=== PATIENT | male | born 1985 | race Caucasian/White ===

== ENCOUNTER 2019-07-11 09:50 | Inpatient (IN) | payer MEDICAID ==
[2019-07-11] VITALS (362 sets, daily range): BP systolic 130–138; BP diastolic 93–101; PULSE 92–105; TEMP 97.2–98.8; O2SAT 80–100
[~2019-07-11] VITALS: Ht 175.3 cm; Wt 63.0 kg
[~2019-07-11 09:50] MED LIST: ABILIFY; ABILIFY DISCMEL10 M1; ATIVAN1 MG PO; BACTRIM DS 8001 TAB PO; BENTYL10 MG PO; CELEXA; CEPHALEXIN500 M1 PO; CLINDAMYCIN HC150 MG PO; GENTAMICIN EYE D5 ML OS; GEODON; LORAZEPAM2 MG PO; LORTAB 10/500 51 TAB PO; LORTAB 5/500 501 TAB PO; NO HOME MEDICATIONS; PAMELOR 25MG25 MG PO; PEPCID 20MG TAB20 MG PO; PHENERGAN 25 TA25 MG PO; PRILOSEC 20MG20 MG PO; PRISTIQ100 MG PO; PRISTIQ50 MG; RANITIDINE HYD150 MG PO; SKELAXIN800 MG PO; STOMACH ULCER MED; TRAMADOL; ZANTAC; ZOFRAN4 M1 PO; ZOLOFT; [UNRECOGNIZED DRUG - OTHER]; [UNRECOGNIZED DRUG - REMARK]
[2019-07-11 10:22] LABS: BASO % 0.3 % (0.0-2.0); GRAN # 8.9 (1.4-6.5); GRAN % 79.1 % (42.2-75.2); HEMOGLOBIN 13.3 g/dl (13.5-18.0); LYMPH # 1.2 (1.2-3.4); LYMPH % 11.1 % (20.0-51.0); MEAN CELL VOLUME 93 fl (80.0-100.0); MEAN CORPUSCULAR HEMOGLOBIN 29 pg (27.0-31.0); MEAN CORPUSCULAR HGB CONC 32 g/dl (33.0-37.0); MEAN PLATELET VOLUME 9.7 fl (7.4-10.4); MONO % 8.9 % (1.7-9.3); PLATELET COUNT 225 K/mm3 (130-400); RED BLOOD COUNT 4.52 M/mm3 (4.20-5.60)
[2019-07-11 10:34] LABS: COLLECTION METHOD CATHETER
[2019-07-11 10:44] LABS: MUCOUS Present /lpf; PH 5 (5-8); SQUAMOUS EPITHELIAL 0-2 /hpf; URINE APPEARANCE Hazy; URINE BACTERIA Rare /hpf; URINE BILIRUBIN Negative (NEGATIVE); URINE BLOOD 3+ (NEGATIVE); URINE COLOR Yellow; URINE GLUCOSE 2+ (NEGATIVE); URINE KETONE Negative (NEGATIVE); URINE LEUKOCYTE ESTERASE Negative (NEGATIVE); URINE NITRATE Negative (NEGATIVE); URINE PROTEIN(semi-quant) 1+ (NEGATIVE); URINE RBC 0-2 /hpf
[2019-07-11 10:51] LABS: TRICYCLIC ANTIDEPRESS URINE NEGATIVE
[2019-07-11 10:53] LABS: ALANINE AMINOTRANSFERASE 177 U/L (4-49); ALBUMIN 4.3 gm/dL (3.5-5.0); ALKALINE PHOSPHATASE 93 U/L (50-136); ANION GAP 13 mmol/L (7-16); AST,SGOT 185 U/L (15-37); BILIRUBIN,TOTAL 0.3 mg/dL (0.0-1.0); BLOOD UREA NITROGEN 23 mg/dL (9-20); CALCIUM 8.1 mg/dL (8.4-10.2); CARBON DIOXIDE 26 mmol/L (22-30); CHLORIDE 99 mmol/L (98-107); CREATININE, serum 2.39 (0.66-1.25); GLUCOSE 92 mg/dL (74-106); SODIUM 138 mmol/L (137-145); TOTAL PROTEIN 6.9 gm/dL (6.4-8.2)
[2019-07-11 10:55] LABS: ACETAMINOPHEN < 10 ug/mL (10-30); ALCOHOL(ethanol),MEDICAL < 10 mg/dL; POTASSIUM 6.3 mmol/L (3.4-5.0); SALICYLATE < 1.0 mg/dL
[2019-07-11 11:27] LABS: ARTERIAL BLD GAS O2 SATURATION 93.5 % (92-100); ARTERIAL BLD GAS TCO2 CT 21.4; ARTERIAL BLOOD GAS HCO3 20.1 meq/L (22-26); ARTERIAL BLOOD GAS PCO2 41.8 mmHg (35-45); ARTERIAL BLOOD GAS PO2 68.2 mmHg (80-100)
[2019-07-11 12:35] LABS: MAGNESIUM 2.3 mg/dL (1.6-2.3)
[2019-07-11 12:45] LABS: POTASSIUM 6.2 mmol/L (3.4-5.0)
[2019-07-11 14:15] LABS: ARTERIAL BLD GAS O2 SATURATION 94.9 % (92-100); ARTERIAL BLD GAS TCO2 CT 20.6; ARTERIAL BLOOD GAS BASE EXCESS -6.6 (-2-2); ARTERIAL BLOOD GAS HCO3 19.4 meq/L (22-26); ARTERIAL BLOOD GAS PCO2 40.3 mmHg (35-45); ARTERIAL BLOOD GAS PO2 75.2 mmHg (80-100)
[2019-07-11 14:18] LABS: CALCIUM 10.2 mg/dL (8.4-10.2); CREATININE, serum 1.46 (0.66-1.25); POTASSIUM 4.4 mmol/L (3.4-5.0)
--- NOTE | 2019-07-11 21:10 | NUR ---
Assessment complete; patient drowsy but opened eyes to speech. Able to follow simple commands but did not respond verbally to this nurse. VS stable. Will continue to monitor.
[2019-07-12] VITALS (930 sets, daily range): BP systolic 120–145; BP diastolic 72–92; PULSE 77–94; TEMP 97.3–98.8; O2SAT 90–100
--- NOTE | 2019-07-12 01:51 | NUR ---
Patient continues to be drowsy and sleeping throughout shift. Will awaken and follow commands before falling asleep again. ETCO2 and respiration within normal limits.
--- NOTE | 2019-07-12 04:50 | NUR ---
Patient awoke and called out to this nurse. Patient asked "how come nobody told my why I'm here?". This nurse explained that patient was not responsive upon arrival and has remained very drowsy until this time. Asked about when he could leave; explained that this is determined by the physician, who will be here sometime during the day. Patient seemed satisfied with this response and returned to sleep.
--- NOTE | 2019-07-12 07:05 | NUR ---
Bedside report given to CORNELIUS Coyle. Patient care transfered.
[2019-07-12 07:10] LABS: BASO % 0.2 % (0.0-2.0); EOS % 0.3 % (0-4.0); GRAN # 7.9 (1.4-6.5); GRAN % 68.6 % (42.2-75.2); HEMOGLOBIN 12.1 g/dl (13.5-18.0); LYMPH # 2.7 (1.2-3.4); LYMPH % 23.1 % (20.0-51.0); MEAN CORPUSCULAR HEMOGLOBIN 30 pg (27.0-31.0); MEAN CORPUSCULAR HGB CONC 34 g/dl (33.0-37.0); MEAN PLATELET VOLUME 10.2 fl (7.4-10.4); MONO # 0.9 (0.1-0.6); MONO % 7.5 % (1.7-9.3); PLATELET COUNT 179 K/mm3 (130-400); RED BLOOD COUNT 4.06 M/mm3 (4.20-5.60)
[2019-07-12 07:11] LABS: HEMATOCRIT 35.8 % (42.0-52.0); MEAN CELL VOLUME 88 fl (80.0-100.0)
[2019-07-12 07:18] LABS: INR 1.3 (0.8-3.0); PROTHROMBIN TIME 15.8 SECONDS (9.7-12.8)
[2019-07-12 07:27] LABS: ALBUMIN 2.9 gm/dL (3.5-5.0); BILIRUBIN,TOTAL 0.4 mg/dL (0.0-1.0); CALCIUM 7.6 mg/dL (8.4-10.2); CREATININE, serum 0.71 (0.66-1.25); MAGNESIUM 2.2 mg/dL (1.6-2.3); POTASSIUM 3.6 mmol/L (3.4-5.0); TOTAL PROTEIN 5.3 gm/dL (6.4-8.2)
--- NOTE | 2019-07-12 08:41 | NUR ---
Significantly more alert this am. Required orientation to place and time, but is able to verbalize that he is in the hospital in [place] in the ICU. Follows commands, no agitation noted. Quickly returns to sleep between conversations. Plan of care reviewed.
--- NOTE | 2019-07-12 10:58 | NUR ---
Initial visit attempt; Patient sleeping, Sports Activities Foul Judge spoke with family member, letting her know of the availability of spiritual care for the patient and family. She thanked Sports Activities Foul Judge for stopping.
--- NOTE | 2019-07-12 13:14 | NUR ---
NUTRITIONAL ASSISTANT student met with the patient and the patient's sister, Cassy to complete initial intake. Cassy is from [place]. The patient was difficult to rouse, Cassy answered as best she could. The patient is staying at the [facility] with his and kids. The patient does not use DME and is independent with ADLs. Cassy does not know if the patient has a PCP or which pharmacy is used. Cassy states she would like to take the patient back to [place], if he is agreeable to go to an inpatient drug and alcohol treatment facility. support services rep will continue to follow to ensure a safe discharge.
[2019-07-13] VITALS (361 sets, daily range): BP systolic 128–140; BP diastolic 86–95; PULSE 63–76; TEMP 98–98.6; O2SAT 91–100
[2019-07-13 06:44] LABS: BASO % 0.4 % (0.0-2.0); EOS # 0.1 (0.0-0.7); EOS % 1.1 % (0-4.0); GRAN # 4.1 (1.4-6.5); HEMOGLOBIN 11.5 g/dl (13.5-18.0); LYMPH # 2.3 (1.2-3.4); LYMPH % 31.8 % (20.0-51.0); MEAN CELL VOLUME 91 fl (80.0-100.0); MEAN CORPUSCULAR HEMOGLOBIN 30 pg (27.0-31.0); MEAN CORPUSCULAR HGB CONC 33 g/dl (33.0-37.0); MEAN PLATELET VOLUME 10.7 fl (7.4-10.4); MONO # 0.8 (0.1-0.6); MONO % 10.4 % (1.7-9.3); PLATELET COUNT 164 K/mm3 (130-400); RED BLOOD COUNT 3.81 M/mm3 (4.20-5.60); REDCELL DISTRIBUTION WIDTH-CV 12.1 % (11.5-14.5)
[2019-07-13 06:55] LABS: HEMATOCRIT 34.6 % (42.0-52.0)
[2019-07-13 06:59] LABS: CALCIUM 7.5 mg/dL (8.4-10.2); CREATININE, serum 0.54 (0.66-1.25); MAGNESIUM 2.2 mg/dL (1.6-2.3); POTASSIUM 3.8 mmol/L (3.4-5.0)
--- NOTE | 2019-07-13 12:10 | NUR ---
Initial visit; Patient thanked Agricultural Economist for looking in on him and offering spiritual care.
--- NOTE | 2019-07-13 16:39 | NUR ---
Patient to room from ICU via wheelchair. is with the patient. Patient is alert and oriented x4. Denies pain at this time. Two abrasions noted to middle of forehead and bridge of nose that are scabbed over, patient says that these are old injuries. Assessment completed. Patient oriented to the room and use of call light. Patient and deny further needs at this time.
--- NOTE | 2019-07-13 18:23 | NUR ---
Lying in bed in supine position with eyes closed. Respirations even and unlabored. No signs or symptoms of discomfort noted.
[2019-07-14] VITALS: BP 126/90; PULSE 69; TEMP 98.1
--- NOTE | 2019-07-14 02:48 | NUR ---
Patient has been resting in bed watching TV this shift. Complaints of back pain from bed, denies needs at this time. Patient has tolerated general diet without nausea. Patient is able to ambulate in room independently. Patient has two IV sites one in the left upper arm, capped and one in the left AC with fluids running. Patient has small abrasion to nose and forhead, reported that occurred before hospital stay.
[2019-07-14 04:37] VITALS: BP 141/96; PULSE 62; TEMP 97.7
[2019-07-14 07:19] VITALS: BP 147/97; PULSE 61; TEMP 98
--- NOTE | 2019-07-14 08:00 | NUR ---
PATIENT RESTING IN BED THIS MORNING. PATIENT DENIES ANY NEEDS AT THIS TIME.
[2019-07-14 08:23] LABS: CALCIUM 7.9 mg/dL (8.4-10.2); CREATININE, serum 0.64 (0.66-1.25); MAGNESIUM 1.8 mg/dL (1.6-2.3)
[2019-07-14 11:36] VITALS: BP 146/90; PULSE 65; TEMP 98.7
--- NOTE | 2019-07-14 12:15 | NUR ---
IV FLUID RATE CHANGED TO 100 ML/HR. PATIENT SITTING UP IN THE CHAIR. PATIENT DENIES PAIN OR ANY NEEDS AT THIS TIME.
--- NOTE | 2019-07-14 14:34 | NUR ---
MANDY attended clinical rounds. The patient is to discharge today, 07/13. MANDY then met with the patient to follow up on discharge plan and to discuss treatment for drug use. The patient reports that he has been residing at the [facility] with his (Janna) and their three children. He states that Janna is with their fourth child. He states that he plans to return back to [facility] upon discharge. The patient was interested in outpatient drug treatment at [facility]. MANDY contacted Carley at [facility] and secured the patient an appointment on 07/24 at 0900 with Kamala Yancey. MANDY informed the patient and manager intensive care unit of appointment. The patient reports that he will be able to afford the medications that he is prescribed. MANDY also discussed primary care. The patient states that he had a PCP in [place], but could not recall there name. He states that he would be interested in getting set up at a clinic in [place]. The patient states that his goes to [facility] and that he would like to get set up there. The patient was secured an appointment at [facility] on 07/24 at 1100. The patient is to discharge today, 07/13, back to [facility] with his family. MANDY made a CPS report, due to concerns. CPS intake ID#[id number].
--- NOTE | 2019-07-14 15:01 | NUR ---
DISCHARGE INSTRUCTIONS REVIEWED WITH PATIENT. LEFT AC AND LEFT FOREARM INT'S DISCONTINUED PER PENDING DISCHARGE. PATIENT TOLERATED WELL.
--- NOTE | 2019-07-14 15:28 | NUR ---
PATIENT AMBULATED WITH SURGICAL STAFF TO PERSONAL VEHICLE. PATIENT DISCHARGED.
== END 2019-07-14 15:28 | disposition home or self-care (01) | DRG 917 ==
LOC: COL.ER 09:50 → ICU 11:45 → SURG 11:45
PROVIDERS: Emergency Medicine; Internal Medicine; Internal Medicine Pulmonary Disease; Nurse Practitioner Family; ADMIT Student in an Organized Health Care Education/Training Program
DX: T40.5X1A Poisoning by cocaine, accidental (unintentional), initial encounter (principal); G92 Toxic encephalopathy; M62.82 Rhabdomyolysis; N17.9 Acute kidney failure, unspecified; T40.1X1A Poisoning by heroin, accidental (unintentional), initial encounter; F19.10 Other psychoactive substance abuse, uncomplicated; F17.210 Nicotine dependence, cigarettes, uncomplicated; E87.5 Hyperkalemia; R11.2 Nausea with vomiting, unspecified
CPT/HCPCS: 99223-AI; 99232-AI; 99233-AI; 99239; J0610; J1644; J1815; J2310; J2405; J2543; J7030; J7120

== ENCOUNTER 2019-08-23 19:42 | Emergency (ER) | payer MEDICAID ==
[~2019-08-23] VITALS: Ht 175.3 cm; Wt 75.0 kg
[2019-08-23 19:47] VITALS: TEMP 98.6
[2019-08-23 21:26] LABS: BASO # 0.1 (0.0-0.2); BASO % 0.5 % (0.0-2.0); EOS # 0.3 (0.0-0.7); EOS % 2.6 % (0-4.0); GRAN # 5.3 (1.4-6.5); GRAN % 53.7 % (42.2-75.2); HEMATOCRIT 40.3 % (42.0-52.0); HEMOGLOBIN 13.9 g/dl (13.5-18.0); LYMPH # 3.4 (1.2-3.4); LYMPH % 34.6 % (20.0-51.0); MEAN CELL VOLUME 87 fl (80.0-100.0); MEAN CORPUSCULAR HEMOGLOBIN 30 pg (27.0-31.0); MEAN CORPUSCULAR HGB CONC 35 g/dl (33.0-37.0); MEAN PLATELET VOLUME 9.4 fl (7.4-10.4); MONO # 0.8 (0.1-0.6); MONO % 8.3 % (1.7-9.3); PLATELET COUNT 286 K/mm3 (130-400); RED BLOOD COUNT 4.62 M/mm3 (4.20-5.60)
[2019-08-23 21:30] LABS: ALANINE AMINOTRANSFERASE 15 U/L (4-49); ALBUMIN 4.4 gm/dL (3.5-5.0); ALKALINE PHOSPHATASE 93 U/L (50-136); ANION GAP 9 mmol/L (7-16); AST,SGOT 19 U/L (15-37); BILIRUBIN,TOTAL 0.3 mg/dL (0.0-1.0); BLOOD UREA NITROGEN 10 mg/dL (9-20); CALCIUM 9.3 mg/dL (8.4-10.2); CARBON DIOXIDE 26 mmol/L (22-30); CHLORIDE 106 mmol/L (98-107); CREATININE, serum 0.92 (0.66-1.25); GLUCOSE 95 mg/dL (74-106); POTASSIUM 3.7 mmol/L (3.4-5.0); SODIUM 141 mmol/L (137-145); TOTAL PROTEIN 7.4 gm/dL (6.4-8.2)
[2019-08-23 21:42] LABS: TROPONIN-I < 0.012 ng/mL (0.000-0.035)
[2019-08-23] MEDS ORDERED: ATARAX 25MG25 MG/TAB PO (22:55)
[2019-08-23] MEDS ORDERED: PRILOTC PO (22:55)
[2019-08-23 22:58] VITALS: BP 122/82; PULSE 82
== END 2019-08-23 23:05 | disposition home or self-care (01) ==
LOC: COL.ER 19:42
PROVIDERS: Emergency Medicine
DX: F41.0 Panic disorder [episodic paroxysmal anxiety] (principal); R07.89 Other chest pain; R06.00 Dyspnea, unspecified; R13.10 Dysphagia, unspecified; F17.210 Nicotine dependence, cigarettes, uncomplicated

== ENCOUNTER 2023-07-21 09:19 | Emergency (ER) | payer SELFPAY ==
[~2023-07-21] VITALS: Ht 175.3 cm; Wt 75.0 kg
[~2023-07-21 09:19] MED LIST changes: +ATARAX 25MG25 MG/TAB PO; +PRILOTC PO
[2023-07-21] MEDS ORDERED: Acetaminophen 500 MG TAB PO ONE (10:00)
[2023-07-21] MEDS ORDERED: Ibuprofen 600 MG TAB PO ONE (10:00)
[2023-07-21 12:25] VITALS: BP 131/90; PULSE 70; TEMP 98
== END 2023-07-21 12:25 | disposition home or self-care (01) ==
LOC: COL.ER 09:19
DX: S93.402A Sprain of unspecified ligament of left ankle, initial encounter (principal); X50.1XXA Overexertion from prolonged static or awkward postures, initial encounter; V58.4XXA Person boarding or alighting a pick-up truck or van injured in noncollision transport accident, initial encounter; Y92.59 Other trade areas as the place of occurrence of the external cause; Y99.0 Civilian activity done for income or pay
CPT/HCPCS: L4386